=== PATIENT | female | born 1970 | race Caucasian/White ===

== ENCOUNTER 2020-01-05 07:59 | Day surgery (SDC) | payer OTHER ==
[2020-01-05] MEDS ORDERED: SALMON OIL 1,01 EACH PO (08:27)
[2020-01-05] MEDS ORDERED: VITAMIN B COMP1 EACH PO (08:27)
[2020-01-05] MEDS ORDERED: CO Q-10 100 MG1 EACH PO (08:28)
[2020-01-05] MEDS ORDERED: VITAMIN D3125 MC1 PO (08:29)
--- NOTE | 2020-01-05 09:36 | NUR ---
01/05/20 0936 Yomaira Sylvester 0932 PATIENT ARRIVES TO PACU AWAKE BUT DROWSY. RESP EVEN AND UNLABORED, NC AT 3 LITERS. TURNED OFF AFTER ARRIVAL TO PACU. DENIES PAIN OR NAUSEA.
--- NOTE | 2020-01-09 12:11 | PATH ---
[facility] [address] [facility] [address] [facility] [place] [address] Signed SPECIMEN(S): A MID TRANSVERSE POLYP SPECIMEN(S): B COLON POLYP AT 20 CM SPECIMEN SOURCE: A. MID TRANSVERSE POLYP B. COLON POLYP AT 20 CM CLINICAL HISTORY: Colon polyps. MICROSCOPIC DESCRIPTION: Histologic sections of all submitted blocks are examined by light microscopy. These findings, together with the gross examination, support the pathologic diagnosis. FINAL PATHOLOGIC DIAGNOSIS: A. Colon, mid transverse, polyp, polypectomy: - Fragments of hyperplastic polyp. - Negative for dysplasia or malignancy. B. Colon, polyp at 20 cm, polypectomy: - Tubular adenoma. - Negative for high-grade dysplasia or malignancy. NAL:cml:C2NR GROSS DESCRIPTION: Two specimens are received in two containers, labeled "Gennaro, Ariane." A. The specimen, labeled "Gennaro, Ariane, 1," and designated on the requisition "mid transverse," is received in formalin and consists of three fay soft tissue fragment(s that measure 0.2-0.3 cm in greatest dimension. The specimen is entirely submitted in cassette (A1). B. The specimen, labeled "Gennaro, Ariane, 2," and designated on the requisition "colon polyp 20 cm," is received in formalin and consists of one fay soft tissue fragment that measures 0.2 cm in greatest dimension. The specimen is entirely submitted in cassette (B1). FB (under the direct supervision of a pathologist) The Gross Description was prepared using a voice recognition system. The report was reviewed for accuracy; however, sound-alike word errors, addition and/or deletions may occur. If there is any question about this report, please contact Client Services. PERFORMING LABORATORY: The technical component was performed by COM DEV, Estephania Hsuivan Juan Alberto, PATIENT NAME: ARIANE KAHN PATHOLOGY DATE OF : 66 REPORT #: [id number] PHYSICIAN: ABBE PATHOLOGY PCP: LEONEL ANDERSON MD REPORT IS CONFIDENTIAL AND NOT TO BE RELEASED WITHOUT AUTHORIZATION [facility] [address] [place], [place] [address] [place] [address] (Writer Technical Publications: Surekha Vallecillo MD; CLIA# [id number]). Professional interpretation was performed by [facility], [address] [address] (CLIA# [id number]). Diagnostician: Cynthia Parra MD Pathologist Electronically Signed 01/09/2020 Copies: ~ PATIENT NAME: ARIANE KAHN PATHOLOGY DATE OF : 66 REPORT #: [id number] PHYSICIAN: ABBE HOWARD PCP: LEONEL ANDERSON MD REPORT IS CONFIDENTIAL AND NOT TO BE RELEASED WITHOUT AUTHORIZATION
--- NOTE | 2020-01-09 18:28 | OR ---
[facility] [address] [place], [place] [address] Signed DATE OF OPERATION: 01/05/2020 SURGEON: Edward Wilde MD PREOPERATIVE DIAGNOSIS: Colon screening (asymptomatic). POSTOPERATIVE DIAGNOSES: 1. Minimal diverticular changes, right transverse colon. 2. Polyps x2 (left transverse colon and sigmoid at 20 cm). PROCEDURE: Total colonoscopy to cecum with cold morcellation polypectomy x2. ANESTHESIA: Intravenous sedation, fentanyl 150 mcg and Versed 5 mg. INDICATIONS: This 49-year-old white woman is the of Dr. Kahn, a local family physician. She is a patient of Dr. Gomez. She has never undergone colonoscopy in the past and at the milestone of 48 years has been recommended to do so. Her family history is unknown as she is adopted. She has no symptoms of bleeding, diarrhea, or constipation. She is admitted at this time to undergo colonoscopy. She understands the risks of bleeding, infection, and perforation. FINDINGS: The prep was excellent. Complete colonoscopy was undertaken of the cecum. There were several diverticula on the right transverse colon, but not elsewhere. There were two small polyps, both were excised completely, one in the right transverse colon, the other in the sigmoid at 20 cm. There were no other findings of concern. DESCRIPTION OF PROCEDURE: The patient was brought to the endoscopy suite and placed in lateral decubitus position, given intravenous sedation to the point of slurred speech and nystagmus. Digital rectal examination was normal. Olympus video colonoscope was passed into the rectum and manipulated throughout the colon ultimately intubating the cecum itself. The biopsy forceps was used to elevate the mucosa behind the ileocecal valve for a full evaluation. The scope was then withdrawn and upon withdraw of the scope in the left transverse colon, there was a small Electronically Signed By: EDWARD WILDE MD 01/09/20 1828 PATIENT NAME: ARIANE KAHN OPERATIVE REPORT DATE OF : 66 REPORT #: [id number] PHYSICIAN: EDWARD WILDE MD PCP: LEONEL GOMEZ MD REPORT IS CONFIDENTIAL AND NOT TO BE RELEASED WITHOUT AUTHORIZATION [facility] [address] [place], [place] [address] Signed polyp probably adenomatous. This was excised with multiple bites of cold morcellation forceps. The scope was further withdrawn and another small polyp was noted at 20 cm. This too was excised with cold morcellation technique. Further withdrawal of scope showed no evidence of abnormality in the rectum. Retroflexed view was normal. Scope was removed and the patient was taken to the recovery room in good condition. CONCLUDING DIAGNOSIS: Polyps x2. PLAN: Recommend repeat colonoscopy in 3 years, sooner if clinically indicated. We will review the pathology report. If the polyp should be hyperplastic, colonoscopy could be extended to 10 years even. She will return to the ongoing care of Dr. Gomez. MD RATNA Rao/LAINAL /[id number] cc: MD Federico Briones MD Copies: LEONEL GOMEZ MD, ROBERT D DMD ~ Electronically Signed By: EDWARD WILDE MD 01/09/20 1828 PATIENT NAME: ARIANE KAHN OPERATIVE REPORT DATE OF : 66 REPORT #: [id number] PHYSICIAN: EDWARD WILDE MD PCP: LEONEL GOMEZ MD REPORT IS CONFIDENTIAL AND NOT TO BE RELEASED WITHOUT AUTHORIZATION
== END 2020-01-05 10:05 | disposition home or self-care (01) ==
LOC: OPS 07:59 → DS 07:59 → OPS 08:30 → DS 08:30 → OPS 10:05
PROVIDERS: Surgery
PROC: 0DBL8ZZ Excision of Transverse Colon, Via Natural or Artificial Opening Endoscopic (ICD-10-PCS; 2020-01-05)
PROC: 0DBN8ZZ Excision of Sigmoid Colon, Via Natural or Artificial Opening Endoscopic (ICD-10-PCS; principal; 2020-01-05 08:30)
DX: Z12.11 Encounter for screening for malignant neoplasm of colon (principal); D12.5 Benign neoplasm of sigmoid colon; K57.30 Diverticulosis of large intestine without perforation or abscess without bleeding; Z91.048 Other nonmedicinal substance allergy status; Z88.5 Allergy status to narcotic agent; Z88.8 Allergy status to other drugs, medicaments and biological substances; Z90.710 Acquired absence of both cervix and uterus
CPT/HCPCS: 99153; G0500; J2250; J3010; J7121